=== PATIENT | female | born 1960 | race Caucasian/White ===

== ENCOUNTER 2016-09-24 20:29 | Inpatient (IN) | payer SELFPAY ==
[2016-09-24 21:04] VITALS: BMI 21.5
--- NOTE | 2016-09-24 21:24 | HP ---
COWS - Scale Resting Pulse: 1= SD 81-100 Sweatin= Chills/Flushing Restless Observation: 3= Extraneous Movement Pupil Size: 0= Normal to Room Light Bone or Joint Aches: 2= Severe Diffuse Aches Runny Nose/ Eye Tearin= Runny Nose/Eyes GI Upset > 30mins: 3= Vomiting/Diarrhea Tremor Observation: 2= Slight Tremor Visible Yawning Observation: 0= None Anxiety or Irritability: 2=Irritable/Anxious Goose Flesh Skin: 0=Smooth Skin COWS Score: 16 Admission [facility] Chief Complaint: withdrawal sx Allergies/Adverse Reactions: Allergies Allergy/AdvReac Type Severity Reaction Status Date / Time No Known Allergies Allergy Verified 09/24/16 21:24 History of Present Illness: 56 years old female with long history of heroin dependence has hypertension and depression is admitted to detox Exam Limitations: No Limitations - Ebola screening Have you traveled outside of the country in the last 21 days: No (N) Have you had contact with anyone from an Ebola affected area: No Have you been sick,other than usual withdrawal symptoms: No Do you have a fever: No - Review of Systems Constitutional: Chills, Changes in sleep, Weight Stable EENT: reports: Other (eye glasses) Respiratory: reports: No Symptoms reported Cardiac: reports: No Symptoms Reported GI: reports: Nausea, Poor Fluid Intake, Abdominal cramping : reports: No Symptoms Reported Musculoskeletal: reports: Back Pain, Joint Pain, Muscle Pain, Neck Pain Integumentary: reports: No Symptoms Reported Neuro: reports: Tremors Endocrine: reports: No Symptoms Reported Hematology: reports: No Symptoms Reported Psychiatric: reports: Judgement Intact, Orientated x3, Anxious, Depressed Other Systems: Reviewed and Negative Patient History - Patient Medical History Hx Anemia: No Hx Asthma: No Hx Chronic Obstructive Pulmonary Disease (COPD): No Hx Cancer: No Hx Cardiac Disorders: No Hx Congestive Heart Failure: No Hx Hypertension: Yes Hx Hypercholesterolemia: No Hx Pacemaker: No HX Cerebrovascular Accident: No Hx Seizures: No Hx Dementia: No Hx Diabetes: No Hx Gastrointestinal Disorders: No Hx Liver Disease: No Hx Genitourinary Disorders: No Hx Sexually Transmitted Disorders: No Hx Renal Disease (ESRD): No Hx Thyroid Disease: No Hx Human Immunodeficiency Virus (HIV): No Hx Hepatitis C: No Hx Depression: Yes Hx Suicide Attempt: No Hx Bipolar Disorder: No Hx Schizophrenia: No - Patient Surgical History Past Surgical History: Yes Hx Abdominal Surgery: Yes (2013 intestinal obstruction) Anesthesia Reaction: No - PPD History Previous Implant?: Yes Documented Results: Negative w/o proof Implanted On Prior R Admission?: No PPD to be Administered?: Yes - Reproductive History Patient is a Female of Child Bearing Age (11 -55 yrs old): Yes Last Menstrual Period: 10/14/11 Patient : No - Smoking Cessation Smoking history: Never smoked Have you smoked in the past 12 months: No Hx Chewing Tobacco Use: No Initiated information on smoking cessation: No - Substance & Tx. History Hx Alcohol Use: No Hx Substance Use: Yes Substance Use Type: Heroin Hx Substance Use Treatment: No - Substances Abused Heroin Route: Inhalation Frequency: Daily Amount used: 7 bags Age of first use: 55 Date of Last Use: 09/23/16 Oxycontin Route: Oral Frequency: Daily Amount used: 9 tabs Age of first use: 51 Date of Last Use: 09/24/16 Family Disease History - Family Disease History Family Disease History: Other: Father (), Sister (lipid) Admission Physical Exam S - Vital Signs Vital Signs: Vital Signs - 24 hr 09/24/16 21:00 Temperature 98.9 F Pulse Rate 84 Respiratory 20 Rate Blood Pressure 148/76 - Physical General Appearance: Yes: Appropriately Dressed, Mild Distress, Thin, Tremorous, Irritable, Sweating, Anxious HEENTM: Yes: Hearing grossly Normal, Normal ENT Inspection, Normocephalic, Normal Voice Respiratory: Yes: Chest Non-Tender, Lungs Clear, Normal Breath Sounds, No Respiratory Distress, No Accessory Muscle Use Neck: Yes: Supple, Trachea in good position Breast: Yes: Breasts Symetrical Cardiology: Yes: Regular Rhythm, Regular Rate, S1, S2 Abdominal: Yes: Non Tender, Soft Genitourinary: Yes: Within Normal Limits Back: Yes: Normal Inspection Musculoskeletal: Yes: full range of Motion, Gait Steady, Back pain, Muscle Pain Extremities: Yes: Normal Inspection, Normal Range of Motion, Non-Tender, Tremors Neurological: Yes: Fully Oriented, Alert, Motor Strength 5/5, Normal Response, Depressed Affect Integumentary: Yes: Warm Lymphatic: Yes: Within Normal Limits - Diagnostic (1) Opioid dependence with withdrawal Current Visit: Yes Status: Acute (2) Depression (emotion) Current Visit: Yes Status: Suspected Qualifiers: Depression Type: dysthymia Qualified Code(s): F34.1 - Dysthymic disorder (3) Hypertension Current Visit: Yes Status: Chronic Qualifiers: Hypertension type: essential hypertension Qualified Code(s): I10 - Essential (primary) hypertension Cleared for Admission [facility] - Detox or Rehab [facility] Level of Care: Medically Managed Detox Regimen/Protocol: Methadone [facility] Breath Alcohol Content Breath Alcohol Content: 0 Urine Pregancy Test - Result Urine Test Results: Negative- NO Line Present Urine Drug Screen - Results Drug Screen Negative: No Urine Drug Screen Results: OPI-Opiates, TCA-Tricyclic Antidepress, OXY-Oxycodone
[2016-09-24] MEDS ORDERED: MENTHOL/PHENOL 1 EACH UD MM PRN (21:39)
[2016-09-24] MEDS ORDERED: P-EPHED 60MG/TRIPROLIDI 2.5MG TABLET PO PRN (21:39)
[2016-09-24] MEDS ORDERED: MAG HYDROX/AL HYDROX/SIMETH 30 ML UNIT-DOSE CUP PO PRN (21:39)
[2016-09-24] MEDS ORDERED: LOPERAMIDE HCL 2 MG CAPSULE PO PRN (21:39)
[2016-09-24] MEDS ORDERED: IBUPROFEN 400 MG TABLET (FP) PO PRN (21:39)
[2016-09-24] MEDS ORDERED: METHADONE HCL 10 MG TABLET (FOR DETOX USE ONLY) PO ONE ×2 (21:39→23:00)
[2016-09-24] MEDS ORDERED: guaiFENesin/D-METHORPHAN HB 10 ML UNIT-DOSE CUPS PO PRN (21:39)
[2016-09-24] MEDS ORDERED: MAGNESIUM HYDROX 2400MG/30ML ORAL SUSPENSION 30 ML CUP PO PRN (21:39)
[2016-09-24] MEDS ORDERED: MAGNESIUM CITRATE 300 ML BOTTLE PO PRN (21:39)
[2016-09-24] MEDS ORDERED: cloNIDine HCL 0.1 MG TABLET PO PRN (21:41)
[2016-09-24] MEDS: diazePAM 5 MG TABLET PO PRN (23:29)
[2016-09-24] MEDS: SODIUM CHLORIDE NASAL SPRAY 44 ML BOTTLE NS SCH (23:41)
[2016-09-24] MEDS: THIAMINE HCL 100 MG TABLET (FP) PO SCH (23:42)
[2016-09-25 00:15] LABS: URINE APPEARANCE CLEAR; URINE BILIRUBIN NEGATIVE (NEGATIVE); URINE BLOOD NEGATIVE (NEGATIVE); URINE COLOR STRAW; URINE GLUCOSE (UA) NEGATIVE (NEGATIVE); URINE KETONE NEGATIVE (NEGATIVE); URINE LEUK ESTERASE NEGATIVE (NEGATIVE); URINE NITRITE NEGATIVE (NEGATIVE); URINE PROTEIN NEGATIVE (NEGATIVE); URINE UROBILINOGEN NEGATIVE E.U./dl (0.2-1.0)
[2016-09-25] MEDS: diazePAM 5 MG TABLET PO PRN ×3 (05:57→22:44)
--- NOTE | 2016-09-25 06:40 | CONSULT ---
[facility] Psychiatric Consult - Data Date of interview: 09/25/16 Admission source: [facility] Identifying data: This is 56 years ol female with no psychiatric hospitalization history intoxicated with: Opioids Substance Abuse History: - Smoking Cessation. Smoking history: Never smoked. Have you smoked in the past 12 months: No. Hx Chewing Tobacco Use: No. Initiated information on smoking cessation: No. - Substance & Tx. History. Hx Alcohol Use: No. Hx Substance Use: Yes. Substance Use Type: Heroin. Hx Substance Use Treatment: No. - Substances Abused. Heroin. Route: Inhalation. Frequency: Daily. Amount used: 7 bags. Age of first use: 55. Date of Last Use: 09/23/16. Oxycontin. Route: Oral. Frequency: Daily. Amount used: 9 tabs. Age of first use: 51. Date of Last Use: 09/24/16 Medical History: HTN Psychiatric History: Lavelle reports history of ndepression, reports no0 medications taking prior to admission Physical/Sexual Abuse/Trauma History: Denies Additional Comment: Observation. Detox Unit Care Protocol Mental Status Exam - Mental Status Exam Alert and Oriented to: Person Cognitive Function: Fair Patient Appearance: Unkempt Mood: Sad Affect: Flat Patient Behavior: Sedated Speech Pattern: Delayed Voice Loudness: Mildly Soft/Quiet Thought Process: Circumstantial Thought Disorder: Being Controlled Hallucinations: Denies Suicidal Ideation: Denies Homicidal Ideation: Denies Insight/Judgement: Fair Sleep: Difficulty falling asleep Appetite: Fair Muscle strength/Tone: Mild Hypotonicity Gait/Station: Shuffling Additional Comments: Observation. Detox Unit Care Protocol Psychiatric Findings - Problem List ([place] 1, 2,3) (1) Opioid dependence with withdrawal Current Visit: Yes Status: Acute (2) Opioid-induced mood disorder Current Visit: Yes Status: Acute - Initial Treatment Plan Initial Treatment Plan: Observation. Detox Unit Care Protocol
[2016-09-25] MEDS: SODIUM CHLORIDE NASAL SPRAY 44 ML BOTTLE NS SCH ×3 (06:48→22:44)
[2016-09-25 09:53] LABS: MCH 31.3 pg (25.7-33.7); MEAN CELL VOLUME 92.1 fl (80-96); MEAN PLT VOLUME 8.1 fl (7.5-11.1); PLATELET COUNT 279 K/MM3 (134-434); RDW 13.1 % (11.6-15.6); WHITE BLOOD COUNT 3.9 K/mm3 (4.0-10.0)
[2016-09-25] MEDS ORDERED: METHADONE HCL 10 MG TABLET (FOR DETOX USE ONLY) PO ONE (10:00)
[2016-09-25 10:03] LABS: ALBUMIN 3.7 g/dl (3.4-5.0); BILIRUBIN,TOTAL 0.3 mg/dL (0.2-1.0); SGOT/AST 16 U/L (15-37)
[2016-09-25 10:09] LABS: ALK PHOS 59 U/L (45-117); ANION GAP 7 (8-16); CALCIUM 9.2 mg/dL (8.5-10.1); CO2 34 mmol/L (21-32); COCKROFT - GAULT 134.2745; CREATININE 0.4 mg/dL (0.55-1.02); GLUCOSE,RANDOM 85 mg/dL (74-106); SGPT/ALT 19 U/L (12-78); TOT PROT 6.7 g/dl (6.4-8.2)
[2016-09-25] MEDS: PRENATAL VITAMINS W/ FOLIC ACID TABLET (FP) PO SCH (10:51)
[2016-09-25] MEDS ORDERED: TRIMETHOBENZAMIDE HCL 300 MG CAPSULE PO PRN (10:55)
--- NOTE | 2016-09-25 10:58 | PN ---
S COWS - Scale Resting Pulse: 0= [place] 80 or Below Sweatin=Flushed/Facial Moisture Restless Observation: 1= Difficult to Sit Still Pupil Size: 0= Normal to Room Light Bone or Joint Aches: 2= Severe Diffuse Aches Runny Nose/ Eye Tearin= None GI Upset > 30mins: 2= Nausea/Diarrhea Tremor Observation of Outstretched Hands: 2= Slight Tremor Visible Yawning Observation: 1= 1-2x During Session Anxiety or Irritability: 2=Irritable/Anxious Goose Flesh Skin: 3=Piloerection COWS Score: 15 [facility] Progress Note (SOAP) Subjective: sweats muscle cramps body aches nausea interrupted sleep Objective: 09/25/16 10:57 Vital Signs Temperature 98.1 F 09/25/16 10:12 Pulse Rate 78 09/25/16 10:12 Respiratory Rate 16 09/25/16 10:12 Blood Pressure 121/60 09/25/16 10:12 O2 Sat by Pulse Oximetry (%) Laboratory Tests 09/24/16 09/25/16 09/25/16 23:19 07:00 07:00 WBC 3.9 L RBC 3.98 Hgb 12.5 Hct 36.7 MCV 92.1 MCHC 34.0 RDW 13.1 Plt Count 279 MPV 8.1 Sodium 138 Potassium 4.6 Chloride 97 L Carbon Dioxide 34 H Anion Gap 7 L BUN 17 Creatinine 0.4 L Creat Clearance w eGFR > 60 Random Glucose 85 Calcium 9.2 Total Bilirubin 0.3 AST 16 ALT 19 Alkaline Phosphatase 59 Total Protein 6.7 Albumin 3.7 Urine Color Straw Urine Appearance Clear Urine pH 7.0 Urine Protein Negative Urine Glucose (UA) Negative Urine Ketones Negative Urine Blood Negative Urine Nitrite Negative Urine Bilirubin Negative Urine Urobilinogen Negative Ur Leukocyte Esterase Negative awake/alert ambulating no acute distress Assessment: 09/25/16 10:57 withdrawal sx Plan: continue detox increase fluids flexiril 10mg prn motrin 600mg prn tigan po prn
[2016-09-25] MEDS: CYCLOBENZAPRINE HCL 10 MG TABLET (FP) PO PRN ×2 (11:38→22:44)
[2016-09-25] MEDS: IBUPROFEN 600 MG TABLET (FP) PO PRN (11:38)
[2016-09-25] MEDS: RANITIDINE HCL 150 MG TABLET (FP) PO SCH ×2 (11:38→22:44)
--- NOTE | 2016-09-25 11:41 | EKG ---
Test Reason : Blood Pressure : / mmHG Vent. Rate : 080 BPM Atrial Rate : 080 BPM P-R Int : 138 ms QRS Dur : 092 ms QT Int : 406 ms P-R-T Axes : 059 060 057 degrees QTc Int : 468 ms NORMAL SINUS RHYTHM NORMAL ECG NO PREVIOUS ECGS AVAILABLE Confirmed by FABIANO OSORIO, KYLEE ([id number]) on 09/25/2016 11:41:11 AM Referred By: Confirmed By:KYLEE MARIO MD
[2016-09-25] MEDS: THIAMINE HCL 100 MG TABLET (FP) PO SCH (22:44)
[2016-09-26] MEDS: ACETAMINOPHEN 325 MG TABLET (FP) PO PRN ×2 (05:35→10:35)
[2016-09-26] MEDS: diazePAM 5 MG TABLET PO PRN ×3 (05:35→22:23)
[2016-09-26] MEDS: SODIUM CHLORIDE NASAL SPRAY 44 ML BOTTLE NS SCH ×3 (05:38→22:51)
[2016-09-26] MEDS ORDERED: METHADONE HCL 5 MG TABLET (FOR DETOX USE ONLY) PO ONE (10:00)
[2016-09-26] MEDS: RANITIDINE HCL 150 MG TABLET (FP) PO SCH ×2 (10:34→22:23)
[2016-09-26] MEDS: PRENATAL VITAMINS W/ FOLIC ACID TABLET (FP) PO SCH (10:34)
--- NOTE | 2016-09-26 11:18 | PN ---
S COWS - Scale Resting Pulse: 1= [place] 81-100 Sweatin=Flushed/Facial Moisture Restless Observation: 1= Difficult to Sit Still Pupil Size: 0= Normal to Room Light Bone or Joint Aches: 2= Severe Diffuse Aches Runny Nose/ Eye Tearin= None GI Upset > 30mins: 1= Stomach Cramp Tremor Observation of Outstretched Hands: 2= Slight Tremor Visible Yawning Observation: 0= None Anxiety or Irritability: 2=Irritable/Anxious Goose Flesh Skin: 3=Piloerection COWS Score: 14 S Progress Note (SOAP) Subjective: chills stomach cramps nausea interrupted sleep sweats Objective: 09/26/16 11:16 Vital Signs Temperature 97.1 F L 09/26/16 09:52 Pulse Rate 90 09/26/16 09:52 Respiratory Rate 20 09/26/16 09:52 Blood Pressure 112/73 09/26/16 09:52 O2 Sat by Pulse Oximetry (%) Laboratory Tests 09/24/16 09/25/16 09/25/16 23:19 07:00 07:00 WBC 3.9 L RBC 3.98 Hgb 12.5 Hct 36.7 MCV 92.1 MCHC 34.0 RDW 13.1 Plt Count 279 MPV 8.1 Sodium 138 Potassium 4.6 Chloride 97 L Carbon Dioxide 34 H Anion Gap 7 L BUN 17 Creatinine 0.4 L Creat Clearance w eGFR > 60 Random Glucose 85 Calcium 9.2 Total Bilirubin 0.3 AST 16 ALT 19 Alkaline Phosphatase 59 Total Protein 6.7 Albumin 3.7 Urine Color Straw Urine Appearance Clear Urine pH 7.0 Ur Specific [place] 1.010 Urine Protein Negative Urine Glucose (UA) Negative Urine Ketones Negative Urine Blood Negative Urine Nitrite Negative Urine Bilirubin Negative Urine Urobilinogen Negative Ur Leukocyte Esterase Negative RPR Titer 09/25/16 07:00 WBC RBC Hgb Hct MCV MCHC RDW Plt Count MPV Sodium Potassium Chloride Carbon Dioxide Anion Gap BUN Creatinine Creat Clearance w eGFR Random Glucose Calcium Total Bilirubin AST ALT Alkaline Phosphatase Total Protein Albumin Urine Color Urine Appearance Urine pH Ur Specific [place] Urine Protein Urine Glucose (UA) Urine Ketones Urine Blood Urine Nitrite Urine Bilirubin Urine Urobilinogen Ur Leukocyte Esterase RPR Titer Nonreactive awake/alert ambulating no acute distress Assessment: 09/26/16 11:17 withdrawal sx Plan: continue detox increase fluids [place]/mom prn
[2016-09-26] MEDS: diphenhydrAMINE HCL 50 MG CAPSULE PO PRN (22:23)
[2016-09-26] MEDS: THIAMINE HCL 100 MG TABLET (FP) PO SCH (22:23)
[2016-09-26] MEDS: CYCLOBENZAPRINE HCL 10 MG TABLET (FP) PO PRN (22:23)
[2016-09-27] MEDS: diazePAM 5 MG TABLET PO PRN (06:02)
[2016-09-27] MEDS: IBUPROFEN 600 MG TABLET (FP) PO PRN ×2 (06:02→20:57)
[2016-09-27] MEDS: SODIUM CHLORIDE NASAL SPRAY 44 ML BOTTLE NS SCH ×3 (06:03→22:32)
[2016-09-27] MEDS ORDERED: METHADONE HCL 5 MG TABLET (FOR DETOX USE ONLY) PO ONE (10:00)
[2016-09-27] MEDS: RANITIDINE HCL 150 MG TABLET (FP) PO SCH ×2 (10:51→22:33)
[2016-09-27] MEDS: PRENATAL VITAMINS W/ FOLIC ACID TABLET (FP) PO SCH (10:51)
--- NOTE | 2016-09-27 10:51 | PN ---
[facility] Progress Note (SOAP) Subjective: sweats very little stomach ache interrupted sleep agitation Objective: 09/27/16 10:50 Vital Signs Temperature 97.9 F 09/27/16 10:18 Pulse Rate 87 09/27/16 10:18 Respiratory Rate 18 09/27/16 10:18 Blood Pressure 108/61 09/27/16 10:18 O2 Sat by Pulse Oximetry (%) awake/alert ambulating no acute distress Assessment: 09/27/16 10:51 withdrawal sx Plan: continue detox increase fluids
[2016-09-27] MEDS: CYCLOBENZAPRINE HCL 10 MG TABLET (FP) PO PRN ×2 (10:52→22:32)
[2016-09-27] MEDS: ACETAMINOPHEN 325 MG TABLET (FP) PO PRN (10:52)
[2016-09-27] MEDS: THIAMINE HCL 100 MG TABLET (FP) PO SCH (22:33)
[2016-09-27] MEDS: hydrOXYzine PAMOATE 50 MG CAPSULE (FP) PO PRN (22:34)
[2016-09-28] MEDS: SODIUM CHLORIDE NASAL SPRAY 44 ML BOTTLE NS SCH ×3 (07:50→23:36)
[2016-09-28] MEDS ORDERED: METHADONE HCL 10 MG TABLET (FOR DETOX USE ONLY) PO ONE (10:00)
[2016-09-28] MEDS: PRENATAL VITAMINS W/ FOLIC ACID TABLET (FP) PO SCH (10:15)
[2016-09-28] MEDS: CYCLOBENZAPRINE HCL 10 MG TABLET (FP) PO PRN ×2 (10:15→22:33)
[2016-09-28] MEDS: RANITIDINE HCL 150 MG TABLET (FP) PO SCH ×2 (10:15→22:33)
[2016-09-28] MEDS: ACETAMINOPHEN 325 MG TABLET (FP) PO PRN ×2 (10:16→17:01)
--- NOTE | 2016-09-28 11:01 | PN ---
S Progress Note (SOAP) Subjective: ALERT,INTERRUPTED SLEEP,DEPRESSION Objective: 09/28/16 11:08 Vital Signs Temperature 98.1 F 09/28/16 06:26 Pulse Rate 77 09/28/16 06:26 Respiratory Rate 16 09/28/16 06:26 Blood Pressure 106/54 09/28/16 06:26 O2 Sat by Pulse Oximetry (%) Assessment: 09/28/16 11:08 WITHDRAWAL SYMPTOM Plan: CONTINUE DETOX,DISCHARGE IN AM,PSYCHIATRIST EVALUATION
--- NOTE | 2016-09-28 18:51 | PN ---
Psychiatric Progress Note Vital Signs: Vital Signs Period Temp Pulse Resp BP Sys/Sears Pulse Ox Last 24 Hr 97 F-98.2 F 77-97 16-20 91-136/49-76 Date of Session: 09/28/16 Chief Complaint:: " I am afraid to go home without methadone." HPI: Case of a 56 y/o female with heroin dependence who is about to complete detox treatment and now presenting with concern over being discharged home tomorrow without " script for methadone." Patient expresses fear of going into withdrawal after discharge. ROS: Unremakable. Current Medications: Active Medications Generic Name Dose Route Start Last Admin Trade Name Freq PRN Reason Stop Dose Admin Acetaminophen 650 mg 09/24/16 21:39 09/28/16 17:01 Tylenol - PO 650 mg Q4H PRN Administration FEVER OR PAIN Al Hydroxide/Mg Hydroxide 30 ml 09/24/16 21:39 09/26/16 22:23 Mylanta Oral Suspension - PO 30 ml Q6H PRN Administration DYSPEPSIA Cyclobenzaprine HCl 10 mg 09/25/16 10:54 09/28/16 10:15 Flexeril - PO 10 mg TID PRN Administration MUSCLE SPASMS Diphenhydramine HCl 50 mg 09/24/16 21:39 09/26/16 22:23 Benadryl - PO 50 mg HSMR1 PRN Administration INSOMNIA Eucalyptus/Menthol/Phenol/Sorbitol 1 each 09/24/16 21:39 Cepastat Lozenge - MM Q4H PRN SORE THROAT Guaifenesin 10 ml 09/24/16 21:39 Robitussin Dm - PO Q6H PRN COUGH Hydroxyzine Pamoate 50 mg 09/27/16 21:47 09/27/16 22:34 Vistaril - PO 50 mg Q4H PRN Administration AGITATION Ibuprofen 600 mg 09/25/16 10:54 09/27/16 20:57 Motrin - PO 600 mg Q6H PRN Administration SEVERE PAIN Loperamide HCl 4 mg 09/24/16 21:39 Imodium - PO Q6H PRN DIARRHEA Magnesium Citrate 300 ml 09/24/16 21:39 Citroma - PO Q48H PRN CONSTIPATION Magnesium Hydroxide 30 ml 09/24/16 21:39 Milk Of Magnesia - PO DAILY PRN CONSTIPATION Methadone HCl 5 mg 09/29/16 06:00 Dolophine - PO 09/29/16 06:01 ONCE@0600 ONE Multivit/Folic Acid/Iron 1 tab 09/25/16 10:00 09/28/16 10:15 Vitamins (Sjr) - PO 1 tab DAILY RADHA Administration Pseudoephedrine/Triprolidine 1 combo 09/24/16 21:39 09/25/16 12:39 Actifed - PO 1 combo TID PRN Administration NASAL CONGESTION Ranitidine HCl 150 mg 09/25/16 11:15 09/28/16 10:15 Zantac - PO 150 mg BID RADHA Administration Sodium Chloride 2 spray 09/24/16 22:00 09/28/16 14:43 [place]al [place] - NS Not Given TID RADHA Thiamine HCl 100 mg 09/24/16 22:00 09/27/16 22:33 Vitamin B1 - PO 100 mg HS RADHA Administration Trimethobenzamide HCl 300 mg 09/25/16 10:55 Tigan - PO QID PRN NAUSEA AND/OR VOMITING Medication(s) Change(s): Patient is not on any medication other than detox protocol. Current Side Effect: No Lab tests ordered: No Lab tests reviewed: Yes Provider note:: Chart reviewed.Dr Peguero's note is appreciated.Met with patient.Doing fine.Patient is not psychotic.Hospital course is benign.Detox treatment is well tolerated.Ms Bentley is visible on the unit.Not in distress.Cognitively intact Patient is at baseline.She is reassured.Patient is taken to the counselor's office by this keno writer / runner.Conference held : search made for an outpatient drug program (close to her area of residence).Patient expressed a sense of relief and confidence in her disposition plans.Crisis averted.Patient is stable for discharge. Total face to face time:: 35 Mental Status Exam - Mental Status Exam Alert and Oriented to: Time, Place, Person Cognitive Function: Good Patient Appearance: Well Groomed Mood: Anxious Affect: Appropriate, Normal Range Patient Behavior: Appropriate, Cooperative Speech Pattern: Clear Voice Loudness: Normal Thought Process: Intact, Goal Oriented Thought Disorder: Not Present Hallucinations: Denies Suicidal Ideation: Denies Homicidal Ideation: Denies Insight/Judgement: Fair Sleep: Fair Appetite: Good Muscle strength/Tone: Normal Gait/Station: Normal Psychiatric Treatment Plan - Problem List (1) Opioid dependence with withdrawal Comment: . (2) Opioid-induced mood disorder Comment: .
[2016-09-28] MEDS: diphenhydrAMINE HCL 50 MG CAPSULE PO PRN (22:33)
[2016-09-28] MEDS: THIAMINE HCL 100 MG TABLET (FP) PO SCH (22:33)
[2016-09-29] MEDS: hydrOXYzine PAMOATE 50 MG CAPSULE (FP) PO PRN (03:34)
[2016-09-29] MEDS ORDERED: METHADONE HCL 5 MG TABLET (FOR DETOX USE ONLY) PO ONE (06:00)
[2016-09-29] MEDS: SODIUM CHLORIDE NASAL SPRAY 44 ML BOTTLE NS SCH (06:01)
[2016-09-29 06:48] VITALS: BP 126/88; PULSE 83; TEMP 97.9
--- NOTE | 2016-09-29 09:21 | PN ---
S Progress Note (SOAP) Subjective: ALERT,NO COMPLAINT Objective: 09/29/16 09:20 Vital Signs Temperature 97.9 F 09/29/16 06:00 Pulse Rate 83 09/29/16 06:00 Respiratory Rate 16 09/29/16 06:00 Blood Pressure 126/88 09/29/16 06:00 O2 Sat by Pulse Oximetry (%) Assessment: 09/29/16 09:20 DETOX COMPLETED,NO WITHDRAWAL SYMPTOM Plan: DISCHARGE TODAY,FOLLOW UP WITH AFTER CARE PROGRAM ARRANGEMENT
--- NOTE | 2016-09-29 09:25 | DS ---
[facility] Detox Discharge Summary Admission Date: 09/24/16 Discharge Date: 09/29/16 - History Present History: Opioid Dependence Additional Comments: FOLLOW UP WITH AFTER [facility] PROGRAM ARRANGEMENT AND PMD FOR MEDICAL PROBLEM Pertinent Past History: HYPERTENSION DEPRESSION - Physical Exam Results Vital Signs: Vital Signs Temperature 97.9 F 09/29/16 06:00 Pulse Rate 83 09/29/16 06:00 Respiratory Rate 16 09/29/16 06:00 Blood Pressure 126/88 09/29/16 06:00 O2 Sat by Pulse Oximetry (%) Pertinent Admission Physical Exam Findings: WITHDRAWAL SYMPTOM - Treatment Hospital Course: Detox Protocol Followed, Detoxed Safely, Responded well, Discharged Condition Good Patient has Accepted a Rehab Referral to: DECLINED - Medication Discharge Medications: Ambulatory Orders Hydrochlorothiazide 25 mg PO DAILY 09/24/16 - Diagnosis (1) Opioid dependence with withdrawal Current Visit: Yes Status: Acute (2) Opioid-induced mood disorder Current Visit: Yes Status: Acute (3) Hypertension Current Visit: Yes Status: Chronic Qualifiers: Hypertension type: essential hypertension Qualified Code(s): I10 - Essential (primary) hypertension (4) Depression (emotion) Current Visit: Yes Status: Suspected Qualifiers: Depression Type: dysthymia Qualified Code(s): F34.1 - Dysthymic disorder - AMA Did Patient Leave Against Medical Advice: No
[2016-09-29] MEDS: PRENATAL VITAMINS W/ FOLIC ACID TABLET (FP) PO SCH (09:49)
[2016-09-29] MEDS: RANITIDINE HCL 150 MG TABLET (FP) PO SCH (09:49)
[2016-09-29] MEDS: ACETAMINOPHEN 325 MG TABLET (FP) PO PRN (09:49)
== END 2016-09-29 10:39 | disposition home or self-care (01) | DRG 773 ==
LOC: YASAS 20:29 → Y6N 21:44
PROVIDERS: ADMIT Internal Medicine; ATTEND Internal Medicine
PROC: HZ2ZZZZ Detoxification Services for Substance Abuse Treatment (ICD-10-PCS; principal; 2016-09-24)
DX: F11.23 Opioid dependence with withdrawal (principal); F11.24 Opioid dependence with opioid-induced mood disorder; F34.1 Dysthymic disorder; I10 Essential (primary) hypertension
CPT/HCPCS: 36415; 80053; 81003; 85027; 86593; 93005; 93010